=== PATIENT | male | born 2005 | race Caucasian/White ===

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

== ENCOUNTER 2024-12-01 16:56 | Emergency (ER) | payer OTHER, SELFPAY ==
[2024-12-01 16:59] VITALS: BP 150/76; PULSE 98; RESP 18; TEMP 36.8; O2SAT 100; BMI 17.4
--- NOTE | 2024-12-01 18:12 | ED_ITS ---
<Statement entered by Gamal Metzger MD - 12/01/24 23:36> I was consulted by the HERMELINDO, and we discussed the complexity of the problems being addressed. I approved the treatment and management plan for this patient's care in the emergency department, thus performing a substantive portion of the medical decision making. Gamal Metzger MD Discharge Plan Disposition Patient Disposition: Home, Self-Care Condition: Good Referrals Follow up/Referrals: Provider,Referral, MD [Primary Care Provider, Medical] - See instructions Activity Restrictions/Add. Instructions Additional Instructions/Restrictions: As we discussed you may wash with soap and water. Please keep clean dry and you may leave open to air. If you need to protect the stitches please wear a nonocclusive dressing. If you have any increasing pain redness drainage or swelling return to the emergency department for evaluation. Your stitches need to stay in for 2 weeks. Clinical Impressions Clinical Impression: Laceration Instructions Patient Instructions: DI for Laceration Repair Print Language Print Language: Guamanian Discharge ED Provider: Gamal Metzger General Adult HPI General Chief complaint: Wound/Laceration Stated complaint: AO 12/01/24 1640 laceration left hand Time Seen by Provider: 12/01/24 18:12 History of Present Illness HPI narrative: Patient presents for bilateral hand lacerations. Patient was working with a full-sized sharp and katana and the blade slipped and he attempted to catch it with his hands suffering lacerations to both palmar surfaces of his hands. He denies any loss of motor or sensory. Related Data Allergies Allergy/AdvReac Type Severity Reaction Status Date / Time Penicillins (PENICILLINS) Allergy Unknown Unknown Verified 12/01/24 18:58 allergy reaction [facility] Disclaimer: The information contained in this section may have been updated after the patient was seen, as this information can be updated by other users. Social History Smoking Status: Never smoker alcohol intake: never current occupational status: unemployed Travel in the last 8 weeks?: None ROS Obtained: Yes Systems reviewed as appropriate & no additional complaints except as documented Physical Exam General General appearance: alert and in no apparent distress Respiratory Respiratory exam: Present normal lung sounds bilaterally Cardiovascular Cardiovascular exam: Present regular rate Neurological Exam Neurological exam: Present alert and oriented X3 Medical Decision Making Medical Records Screening: Per USPSTF and CDC recommendations, given the prevalence of disease in our region, it is our hospital?s policy to screen for HIV and viral Hepatitis for all patients aged 18 and over and those with ongoing risk factors. Norberto Inquiry Pt receiving controlled substance: No Vital Signs: 12/01/24 16:59 12/01/24 19:51 Temperature 98.3 F 98.1 F Temperature Source Oral Oral Pulse Rate 102 H Pulse Rate [Radial] 98 H Respiratory Rate 18 18 Blood Pressure 148/76 H Blood Pressure [Right Arm] 150/76 H Blood Pressure Mean [Right Arm] 100 Blood Pressure Source [Right Arm] Automatic Cuff Blood Pressure Position Sitting Blood Pressure Position [Right Arm] Sitting 02 Sat by Pulse Oximetry 100 Oxygen Delivery Method Room Air Room Air Orders (Tests/Meds): ED MEDICATIONS Discontinued Medications Generic Name Dose Route Start Last Admin Trade Name Freq PRN Reason Stop Dose Admin Bupivacaine HCl 50 mg 12/01/24 18:54 12/01/24 18:57 Bupivacaine-Mpf 0.75% (Cmpd) 30ml Vial IV 12/01/24 18:55 50 mg ONCE ONE Administration Tetanus/Reduced Diphtheria/Acell Pertussis 0.5 ml 12/01/24 18:34 12/01/24 18:46 Tet/Diphth/Pert-Adult 0.5ml Syringe IM 12/01/24 18:35 0.5 ml .ONCE ONE Administration ORDERS Category Date Time Status HIV Combo Stat Lab 12/01/24 18:22 Ordered Hepatitis C Ab Qual. W/ RFX Stat Lab 12/01/24 18:22 Ordered Medical Decision Narrative: In summary patient is a 19-year-old male who [facility] of lacerations to both hands. Patient is hemodynamically stable upon arrival, afebrile. Physical exam is remarkable for a superficial laceration to the left ring finger on the palmar surface at the PIP and in the palm in the interdigital space of digits 2 and 3. On the right hand there is a laceration in the interdigital space on the palm of digits 4 and 5. All are superficial and patient is neurovascularly intact distally with full range of motion with no loss of motor or sensory.. Differential diagnosis considered including deeper laceration complex laceration laceration of the joint or tendon however initial exam reveals no deeper injury and is just a superficial thus alternative diagnosis is not pursued. Initial workup was considered with imaging however patient has no red flags for deeper structure involvement thus deferred. Initial interventions include Tdap. Given no red flag for loss of motor or sensory or deeper structural involvement wounds were repaired primarily with 4 point 0 nylon sutures for a total of 10 stitches between the 3 lacerations. Patient given strict return precautions wound care instructions and instructed to have his sutures removed in 14 days. Patient verbalized understanding agreement. Procedures Laceration Laceration 1: Site: finger Side (If applicable): left (Fourth) Size (cm): 2 Description: linear Depth: simple, single layer Local Anesthetic: bupivacaine 0.5% Amount of anesthesia used (mL): 5 Pre-repair: wound explored, irrigated extensively and deep structures intact Skin layer closed with: nylon Size (cm): 4-0 Number of sutures: 4 Technique: simple, interrupted Laceration 2: Site: hand Side (If applicable): left Size (cm): 1.5 Description: linear Depth: simple, single layer Local Anesthetic: bupivacaine 0.5% Amount of anesthesia used (mL): 3 Pre-repair: wound explored, irrigated extensively and deep structures intact Skin layer closed with: nylon Size (cm): 4-0 Number of sutures: 3 Laceration 3: Site: hand Side (If applicable): right Size (cm): 1.5 Description: linear Depth: simple, single layer Local Anesthetic: bupivacaine 0.5% Amount of anesthesia used (mL): 3 Pre-repair: wound explored, irrigated extensively and deep structures intact Skin layer closed with: nylon Size (cm): 4-0 Number of sutures: 3 Critical Care Critical Care Time Critical Care Time: No
--- OUTSIDE RECORDS SUMMARY | 2024-12-01 18:28 | XMS_ITS | Clinical Summary ---
Author Organization [facility] Address [address] [place] [address] Care Team Providers Care Supervisor Silvering Department Name Role Phone Jez Hatch MD Primary Care Provider + Allergies Active Allergy Reactions Criticality Noted Date Comments Penicillins Unknown (See Comments) Low 01/19/2010 Parents both allergic. Medications * This document contains information received from the source organization and may not represent a complete record from that organization. SUMAtriptan (IMITREX) 100 MG tabletIndications: Migraine with aura and without status migrainosus, not intractable TAKE ONE TABLET AT ONSET OF HEADACHE. MAY REPEAT DOSE ONE TIME IN 2 HOURS IF HEADACHE NOT RELIEVED. 9 tablet 4 Active promethazine-dextr omethorphan (PROMETHAZINE-DM) 6.25-15 MG/5ML syrupIndications:A cute URI Take 5 mL by mouth 4 (Four) Times a Day As Needed for Cough. 120 mL 1 4 Active lisdexamfetamine (VYVANSE) 20 MG capsuleIndications :Attention deficit hyperactivity disorder (ADHD), combined type Take 1 capsule by mouth Every Morning 30 capsule 5 Active Active Problems Problem Noted Date Diagnosed Date Insomnia due to other mental disorder 12/01/2022 Deviated nasal septum 11/06/2022 Seasonal allergic rhinitis due to pollen 023 Attention deficit hyperactivity disorder (ADHD) 10/05/2022 Autism spectrum disorder 07/14/2022 Generalized anxiety disorder 07/14/2022 Overview (07/14/2022): Sees Lyndsey Luis with [facility] Anxiety state 10/02/2011 Sensory disturbance 10/02/2011 Resolved Problems Problem Noted Date Diagnosed Date Resolved Date Hypertrophy of both inferior nasal turbinates 11/07/19 23 02/07/2023 Immunizations Immunization Administration Dates Next Due COVID-19 (PFIZER) Purple Cap Monovalent 08/31/2020,08/03/2020 DTaP 04/06/2008, 5,2004,2004 DTaP / HiB 10/10/2005 H1N1 Nasal 05/04/2009 Hep A, 2 Dose 04/02/2007,04/27/2006 Hep B / HiB 2004 Hep B, Adolescent or Pediatric 2004 Hep B, Dialysis 2004 Hib (HbOC) 2004,2004 IPV 04/06/2008, 5,2004,2004 Influenza Injectable Mdck Pf Quad 04/06/2009 MMR 04/06/2008,07/21/2005 Pneumococcal Conjugate 13-Va lent (PCV13) 04/11/2005,2004,2004,2004 Tdap 12/06/2016 Varicella 04/06/2008,07/21/2005 Family History Medical History Relation Name Comments Bipolar disorder Father Suicide Attempts Father ADD / ADHD Mother Fibromyalgia Mother Relation Name Status Comments Father Mother Social History Tobacco Use Types Packs/Day Years Used Date Smoking Tobacco: Never Smokeless Tobacco: Never Tobacco Cessation:Counseling Given: Not Answered Alcohol Use Standard Drinks/Week Comments Never 0 (1 standard drink = 0.6 oz pur e alcohol) PHQ-2 Answer Date Recorded Retired PHQ-9: Brief Depression Severity Measure Score 0 07/14/2022 PHQ-2 Answer Date Recorded Retired PHQ-9: Brief Depression Severity Measure Score 1 08/09/2023 Sex and Gender Information Value Date Recorded Sex Assigned at Not on file Legal Sex Male 5:53 PM EDT Gender Identity Not on file Sexual Orientation Not on file Last Filed Vital Signs Vital Sign Reading Time Taken Comments Blood Pressure 118/72 08/29/2024 4:14 PM EDT Pulse 99 08/29/2024 4:14 PM EDT Temperature 36.7 C (98 F) 05/12/2024 12:02 PM EST Respiratory Rate 20 05/12/2024 12:02 PM EST Oxygen Saturation 97% 05/12/2024 12:02 PM EST Inhaled Oxygen Concentration - - Weight 48.1 kg (106 lb) 08/29/2024 4:14 PM EDT Height 174 cm (5' 8.5 ) 08/29/2024 4:14 PM EDT Body Mass Index 15.88 08/29/2024 4:14 PM EDT Plan of Treatment Health Maintenance Due Date Last Done Comments HPV VACCINES (1 - Male 3-dose series) 2019 MENINGOCOCCAL B VACCINE (1 of 2 - Standard) 2020 ANNUAL PHYSICAL 07/13/2022 HEPATITIS C SCREENING 07/13/2022 COVID-19 Vaccine (3 - season) 2024 08/31/2020, 08/03/2020 INFLUENZA VACCINE 02/11/2025 04/06/2009 TDAP/TD VACCINES (2 - Td or Tdap) 12/06/2026 12/06/2016 Pneumococcal Vaccine 0-49 Completed 2004, 2004, 2004, Additional history exists MENINGOCOCCAL VACCINE Aged Out No gabe elisha eligible based on patient's age to complete this topic Insurance [facility] Care Teams Supervisor Silvering Department Relationship Specialty Start Date End Date Jez Hatch MD [address] [place] [address] PCP - General Family Medicine 07/14/22
--- OUTSIDE RECORDS SUMMARY | 2024-12-01 18:28 | XMS_ITS | Clinical Summary ---
Author Organization [facility] Address [address] [place] [id number] Care Team Providers Care Energy Engineer Name Role Phone Shahnaz Morris M.D. Primary Care Provider + Source Comments [facility] fully rolled [facility] with thefollowing exceptions:[facility] Active Allergy Reactions Criticality Noted Date Comments Penicillins 01/19/2010 Parents both allergic. Medications diphenhydrAMINE dye, sugar, and alcohol free (BENADRYL ALLERGY) 12.5 MG/5ML solution Take 0.75 mL by mouth 1 time daily as needed. Active Multiple Vitamin (DAILY VITAMIN FORMULA PO) Take by mouth 1 time daily. Active cetirizine (ZYRTEC) 10 MG tablet Take by mouth as directed. Take 1 daily Active melatonin 3 MG tablet Take by mouth. Take 1.5-3mg approx 1/2-1 hr before bedtime 0 0 10/31/2010 Active sertraline (ZOLOFT) 50 MG tablet Take 1 Tab (50 mg total) by mouth 1 time a day. 30 Tab 3 07/30/2012 Active desmopressin (DDAVP) 0.2 MG tablet 0.2 mg at bedtime. Active guanFACINE (TENEX) 1 MG tablet Take 1 Tab (1 mg total) by mouth 2 times a day. Take in morning and at 5 pm. 60 Tab 3 10/25/2012 Active Active Problems Problem Noted Date Diagnosed Date ADHD (attention deficit hyperactivity disorder) 10/02/2011 Asperger's syndrome 10/02/2011 Sensory disturbance 10/02/2011 Anxiety state, unspecified 10/02/2011 Immunizations Immunization Administration Dates Next Due Influenza A (H1N1) Vaccine Nasal 05/04/2009 Influenza Vaccine 0.5 mL - f or patients 6 months and older 04/06/2009 Family History Medical History Relation Name Comments ADHD/ADD Father Relation Name Status Comments Father Social History Tobacco Use Types Packs/Day Years Used Date Smoking Tobacco: Never Assessed Sex and Gender Information Value Date Recorded Sex Assigned at Not on file Legal Sex Male 5:27 AM EST Gender Identity Not on file Sexual Orientation Not on file Last Filed Vital Signs Vital Sign Reading Time Taken Comments Blood Pressure 98/58 10/25/2012 1:18 PM EDT Pulse 90 10/25/2012 1:18 PM EDT Temperature - - Respiratory Rate - - Oxygen Saturation - - Inhaled Oxygen Concentration - - Weight 24.1 kg (53 lb 2 oz) 10/25/2012 1:18 PM E DT Height 129.8 cm (4' 3.1 ) 10/25/2012 1:18 PM EDT Body Mass Index 14.3 10/25/2012 1:18 PM EDT Plan of Treatment Health Maintenance Due Date Last Done Comments MMR IMMUNIZATION (1 of 1 - Standard series) 06/01/2009 DTAP/Tdap/Td IMMUNIZATION (1 - Tdap) 2011 VARICELLA IMMUNIZATION (1 of 2 - 13+ 2-dose series) 2017 HPV IMMUNIZATION (1 - Male 3-dose series) 2019 MENINGOCOCCAL B VACCINE (1 o f 2 - Standard) 2020 HEPATITIS B IMMUNIZATION (1 of 3 - 19+ 3-dose series) 2023 COVID-19 Vaccine (1 - 2023-2 5 season) 2024 AMB SEASONAL FLU VACCINE (#1) 01/12/2025, 04/06/2009 HIB IMMUNIZATION Aged Out No longer e ligible based on patient's age to complete this topic IPV IMMUNIZATION Aged Out No longer e ligible based on patient's age to complete this topic MCV4 IMMUNIZATION Aged Out No longer eligible based on patient's age to complete this topic PNEUMOCOCCAL IMMUNIZATION Aged Out No longer eligible based on patient's age to complete this topic Respiratory Syncytial Virus (RSV) <20mo Aged Out No longer eligible b ased on patient's age to complete this topic Care Teams Energy Engineer Relationship Specialty Start Date End Date Shahnaz Morris M.D. [address] [place] [id number] PCP - General 07/15/07
--- OUTSIDE RECORDS SUMMARY | 2024-12-01 18:28 | XMS_ITS | Encounter Summary ---
Author Organization [facility] Address [address] [place] [address] Care Team Providers Care Business Intelligence Developer Name Role Phone Shahnaz Morris M.D. Primary Care Provider + Reason for Visit * Reason Onset Date Comments Other 10/26/2009 Encounter Details Date Type Department Care Team (Late st Contact Info) Description 10/26/2009 Clinical Note [address]/Medical Office [facility] Division of Developmental & Behavioral Pediatrics [address] [place] [phone] Ruma Peña M.D. [facility] [address] [place] [address] [place] [phone] Other Social History Tobacco Use Types Packs/Day Years Used Date Smoking Tobacco: Never Assessed Sex and Gender Information Value Date Recorded Sex Assigned at Not on file Legal Sex Male 5:27 AM EST Gender Identity Not on file Sexual Orientation Not on file documented as of this encounter Plan of Treatment Not on file documented as of this encounter Visit Diagnoses Not on filedocumented in this encounter Care Teams Business Intelligence Developer Relationship Specialty Start Date End Date Shahnaz Morris M.D. [address] [place] [id number] PCP - General 07/15/07 documented as of this encounter
--- OUTSIDE RECORDS SUMMARY | 2024-12-01 18:28 | XMS_ITS | Clinical Summary ---
Author Organization Healthcare Address [address] [id number] Care Team Providers Care Emergency Care Tech Name Role Phone Shahnaz Morris MD Primary Care Provider [phone] Allergies Active Allergy Reactions Criticality Noted Date Comments Penicillins Unknown - Patient st ates they do not know rxn details Low 01/19/2010 Parents both allergic. Medications * This document contains information received from the source organization and may not represent a complete record from that organization. multivitamin with minerals (Cerovite) 18-400 mg-mcg tablet tablet Take by mouth 1 (one) time each day. Active ALPRAZolam (Xanax) 1 MG tablet TAKE 1 HOUR PRIOR TO SURGERY 10/26/2022 Active sertraline (Zoloft) 100 MG tablet Take 100 mg by mouth 1 (one) time each day. 09/17/2017 Active risperiDONE (RisperDAL) 0.5 MG tablet TAKE 1 TABLET BY MOUTH EVERY DAY AT NIGHT 10/05/2022 Active naproxen (Naprosyn) 500 MG tablet Take 500 mg by mouth 2 (two) times a day with meals. 10/25/2022 Active melatonin 3 MG tablet 12/18/2016 Active amphetamine-dex troamphetamine XR (Adderall XR) 10 MG 24 hr capsule TAKE 1 CAPSULE DAILY FOR ADHD. 09/17/2017 Active ARIPiprazole (Abilify) 5 MG tablet TAKE 0.5 TABLET Daily 09/17/2017 Active Active Problems Problem Noted Date Diagnosed Date Deviated nasal septum 11/06/2022 Nasal obstruction 11/06/2022 Hypertrophy of both inferior nasal turbinates Seasonal allergic rhinitis due to pollen 023 Family History Medical History Relation Name Comments Bipolar disorder Father Relation Name Status Comments Father Social History Tobacco Use Types Packs/Day Years Used Date Smoking Tobacco: Never Assessed Sex and Gender Information Value Date Recorded Sex Assigned at Not on file Legal Sex Male 8:05 PM EDT Gender Identity Not on file Sexual Orientation Not on file Last Filed Vital Signs Vital Sign Reading Time Taken Comments Blood Pressure 136/72 11/06/2022 8:05 AM EDT Pulse 89 11/06/2022 8:05 AM EDT Temperature - - Respiratory Rate 16 09/17/2017 9:22 AM EDT Oxygen Saturation - - Inhaled Oxygen Concentration - - Weight 54.4 kg (120 lb) 11/06/2022 8:05 AM EDT Height 172.7 cm (5' 8 ) 11/06/2022 8:05 AM EDT Body Mass Index 18.25 11/06/2022 8:05 AM EDT Plan of Treatment Health Maintenance Due Date Last Done Comments [facility]-Depression Screening 2004 [facility]-/Child/Adol SDOH Screenings 2004 HPV Vaccines (1 - Male 3-dose series) 2019 [facility]- SDOH Screenings 2022 [facility]-Adult SDOH Screenings 2022 [id number] Vaccine (3 - season) 2024 08/31/2020, 08/03/2020 [facility]-Influenza Vaccine (#1) 2025 05/04/2009 [facility]-DTaP,Tdap,and Td Vaccines (7 - Td or Tdap) 12/06/2026 12/06/2016, 04/06/2008, 10/10/2005, Additional history exists [facility]-Zoster Vaccines (1 of 2) 2054 04/06/2008, 07/21/2005 [facility]-Hepatitis B Vaccines Completed 005, 2004, 2004 [facility]-Pneumococcal Vaccine: Pediatrics (0 to 5 Years) and At-Risk Patients (6 to 49 Years) Completed 04/11/2005, 2004, 2004, Additional history exists [facility]-HIB Vaccines Completed 10/10/2005, 11/2004, 2004, Additional history exists [facility]-Hepatitis A Vaccines Completed 04/02/2007, 04/13 [facility]-IPV Vaccines Completed 04/06/2008, , 2004, Additional history exists [facility]-Varicella Vaccines Completed 04/06/2008, 2005 [facility]-Rotavirus Vaccines Aged Out No lo nger eligible based on patient's age to complete this topic Insurance ANTHEM Care Teams Emergency Care Tech Relationship Specialty Start Date End Date Shahnaz Morris MD [facility] [place] [address] PCP - General 09/24/20
[2024-12-01] MEDS: TET/DIPHTH/PERT-ADULT 0.5ML SYRINGE 0.5 ML IM (18:46)
[2024-12-01] MEDS: BUPIVACAINE MPF 50 MG IV (18:57)
[2024-12-01 19:51] VITALS: BP 148/76; PULSE 102; RESP 18; TEMP 36.7; O2SAT 99
== END 2024-12-01 19:52 | disposition home or self-care (01) ==
PROVIDERS: Emergency Provider Emergency Medicine
DX: S61.412A Laceration without foreign body of left hand, initial encounter (principal)
CPT/HCPCS: 12002; 90471; 90715; 96374; 99284; C9144